=== PATIENT | male | born 1970 | race Caucasian/White ===

== ENCOUNTER 2021-12-18 15:35 | Emergency (ER) | payer MEDICAID | END 2021-12-18 16:45 | disposition home or self-care (01) | LOC: JP.ED 15:35 | DX: S43.401A Unspecified sprain of right shoulder joint, initial encounter (principal); Z72.0 Tobacco use; W18.40XA Slipping, tripping and stumbling without falling, unspecified, initial encounter | CPT/HCPCS: 73030-26-RT; 73030-RT; 99282; 99283-25 ==

== ENCOUNTER 2022-01-23 09:55 | Emergency (ER) | payer MEDICAID ==
[2022-01-23] MEDS ORDERED: Sodium Chloride 0.9% 10 ML Syringe FLUSH PRN (10:41)
[2022-01-23] MEDS ORDERED: Morphine 2 MG/ML SYRINGE IVPUSH ONE (10:41)
[2022-01-23] MEDS ORDERED: Ketorolac 30 MG/ML SDV IVPUSH ONE (10:43)
[2022-01-23] MEDS ORDERED: Sulfamethoxazole/Trimethoprim 800-160 MG Tab PO ONE (10:43)
[2022-01-23] MEDS ORDERED: Iopamidol 612 MG/ML 100 ML Bottle IV PRN (10:49)
[2022-01-23] MEDS ORDERED: Sodium Chloride 0.9% 100 ML IV SCH (11:00)
== END 2022-01-23 13:11 | disposition home or self-care (01) ==
LOC: JP.ED 09:55
DX: N39.0 Urinary tract infection, site not specified (principal); N45.1 Epididymitis; R31.0 Gross hematuria
CPT/HCPCS: 36415; 74177; 76870; 76870-26; 80053; 81001; 82105; 85025; 87086; 87186; 93976; 93976-26; 96374; 96375; 99283; 99285-25; A9270-GY; J1885; J2270; J3490; Q9967

== ENCOUNTER 2022-04-14 09:45 | Emergency (ER) | payer MEDICAID | END 2022-04-14 10:24 | disposition home or self-care (01) | LOC: JP.ED 09:45 | DX: S39.012A Strain of muscle, fascia and tendon of lower back, initial encounter (principal); F17.210 Nicotine dependence, cigarettes, uncomplicated; Z79.899 Other long term (current) drug therapy; W19.XXXA Unspecified fall, initial encounter | CPT/HCPCS: 99283 ==